=== PATIENT | male | born 1980 | race Hispanic/Latino ===

== ENCOUNTER 2019-12-06 12:06 | Emergency (ER) | payer OTHER ==
[~2019-12-06] VITALS: Ht 172.7 cm; Wt 93.8 kg
[2019-12-06 12:07] VITALS: BP 144/81
[2019-12-06] MEDS ORDERED: IBUP-1022 PO (13:08)
--- NOTE | 2019-12-06 13:22 | REPVR ---
PROCEDURE INFORMATION: Exam: XR Right Foot Complete Exam date and time: 12/06/2019 12:34 PM Age: 39 years old Clinical indication: Pain and injury or trauma; Sprain or strain; Right; Injury date: 11/30/19; Injury details: While running felt a pain in lateral foot. ; Additional info: Pain after running TECHNIQUE: Imaging protocol: XR Right foot. Views: 3 or more views. COMPARISON: No relevant prior studies available. FINDINGS: Bones/joints: There is a small ossicle along the base of the 2nd proximal phalanx, appears well corticated and likely from old injury. Small plantar spur. No acute fracture or traumatic malalignment. Soft tissues: Normal. IMPRESSION: No acute osseous abnormality. Electronically signed by: Chris Ferguson On 12/06/2019 13:22:11 PM
== END 2019-12-06 13:20 | disposition home or self-care (01) ==
LOC: M ED 12:06
DX: M72.2 Plantar fascial fibromatosis (principal); Z91.010 Allergy to peanuts

== ENCOUNTER 2020-03-18 12:38 | Emergency (ER) | payer OTHER ==
[~2020-03-18] VITALS: Ht 172.7 cm; Wt 90.0 kg
[~2020-03-18 12:38] MED LIST: IBUP-1022 PO
[2020-03-18] MEDS ORDERED: methylPREDNISolone 125MG 2ML VIAL IV ONE (13:00)
[2020-03-18] MEDS ORDERED: NS 1,000 ML IV ONE (13:00)
--- NOTE | 2020-03-18 13:00 | ECGEPIP ---
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
[2020-03-18 16:00] VITALS: BP 106/56
== END 2020-03-18 16:08 | disposition home or self-care (01) ==
LOC: M ED 12:38 → EDBD 12:38 → M ED 16:08
DX: R22.1 Localized swelling, mass and lump, neck (principal); T50.B95A Adverse effect of other viral vaccines, initial encounter; Y92.9 Unspecified place or not applicable; Y93.9 Activity, unspecified; R06.02 Shortness of breath; Z91.010 Allergy to peanuts
CPT/HCPCS: 93005; 96361; 96374; 99284; J2930

== ENCOUNTER → 2021-02-08 | Outpatient (REF) | LOC: M LABSMTC 12:01 | PROVIDERS: ATTEND Pediatrics | DX: Z20.828 Contact with and (suspected) exposure to other viral communicable diseases (principal) ==

== ENCOUNTER 2022-08-03 12:32 | Emergency (ER) | payer OTHER ==
[~2022-08-03] VITALS: Ht 172.7 cm; Wt 95.7 kg
[2022-08-03] MEDS ORDERED: NAPROXEN 250 MG TAB PO ONE (15:25)
[2022-08-03 15:46] LABS: BASO % 0.5 % (0.0-1.0); EOS # 0.3 10^3/uL (0.0-0.5); EOS % 3.4 % (0.0-3.0); HEMATOCRIT 46.1 % (42.0-52.0); HEMOGLOBIN 15.8 g/dl (13.5-17.5); LYMPH # 2.1 10^3/uL (1.5-5.0); LYMPH % 25.7 % (24.0-44.0); MEAN CORPUSCULAR HEMOGLOBIN 29.5 pg (27.0-33.0); MEAN CORPUSCULAR HGB CONC 34.3 g/dl (32.0-36.5); MEAN CORPUSCULAR VOLUME 86.2 fl (80.0-96.0); MONO # 0.5 10^3/uL (0.0-0.8); MONO % 6.2 % (2.0-8.0); NEUTROPHILS # 5.3 10^3/uL (1.5-8.5); NEUTROPHILS % 63.8 % (36.0-66.0); PLATELET COUNT, AUTOMATED 306 10^3/uL (150-450); RED BLOOD COUNT 5.35 10^6/uL (4.30-6.10); WHITE BLOOD COUNT 8.3 10^3/uL (4.0-10.0)
[2022-08-03 16:16] LABS: URIC ACID 8.8 MG/DL (3.7-9.2)
[2022-08-03 16:18] LABS: C REACTIVE PROTEIN QUANTITATIV < 0.40 MG/DL (<1.0)
[2022-08-03] MEDS ORDERED: NAPR-837 PO (16:26)
[2022-08-03 16:32] LABS: ERYTHROCYTE SEDIMENTATION RATE 10 mm/hr (0-15)
[2022-08-03 16:33] VITALS: BP 129/77; TEMP 97.8; O2SAT 99
== END 2022-08-03 16:57 | disposition home or self-care (01) ==
LOC: M ED 12:32
DX: M10.9 Gout, unspecified (principal); G47.33 Obstructive sleep apnea (adult) (pediatric); Z91.010 Allergy to peanuts